=== PATIENT | male | born 1975 | race Asian ===

== ENCOUNTER 2019-12-12 01:16 | Emergency (ER) | payer OTHER ==
[~2019-12-12] VITALS: Ht 182.9 cm; Wt 76.2 kg
--- NOTE | 2019-12-12 01:30 | NUR ---
BIBS FOR EVALUATION OF L EYE LACERATION S/P ASSUALT. Addendum: 12/12/19 at 0204 by MYRA PT PRESENTED TO THE ER FOR L EYEBROW LACERATION AABOUT 2CM. W/ MINIMAL BLEEDING.
--- NOTE | 2019-12-12 01:42 | NUR ---
PICKED UP FOR CT
--- NOTE | 2019-12-12 01:50 | NUR ---
BACK FROM CT
[2019-12-12] MEDS ORDERED: TDAP [DIPH/PERTUSSIS/TET] 0.5 ML VIAL IM ONE ×2 (02:00→02:32)
[2019-12-12] MEDS ORDERED: LIDOCAINE 1%-EPI 1:100,000 20 ML VIAL ONE (02:17)
--- NOTE | 2019-12-12 02:42 | NUR ---
PT RECEIVED SUTURES BY MD AT THE BED SIDE. PT TOLERATED THE PROCEDURE WELL. NO BLEEDING NOTED, AREA WAS CLEANED AND DRIED. DD APPLIED. Patient discharged to home in stable condition. Written and verbal after care instructions given. Patient verbalizes understanding of instruction.
[2019-12-12 02:43] VITALS: BP 129/80
== END 2019-12-12 02:43 | disposition home or self-care (01) ==
LOC: ER 01:21
DX: S01.112A Laceration without foreign body of left eyelid and periocular area, initial encounter (principal); Y04.8XXA Assault by other bodily force, initial encounter; Y93.89 Activity, other specified; Y92.89 Other specified places as the place of occurrence of the external cause; Y99.8 Other external cause status
CPT/HCPCS: 12011; 70486; 90471; 90715; 99284; A6403; J3490